=== PATIENT | female | born 1985 | race Caucasian/White ===

== ENCOUNTER 2016-12-16 14:30 | Emergency (ER) | payer MEDICAID ==
[~2016-12-16] VITALS: Ht 182.9 cm; Wt 72.6 kg
[2016-12-16 15:24] LABS: APPEARANCE,URINE CLEAR; KETONES,URINE NEGATIVE (NEGATIVE); LEUKOCYTE ESTERASE ,URINE 1+ (NEGATIVE); NITRITE,URINE NEGATIVE (NEGATIVE); PH,URINE 6.5 (4.5-8.0); PROTEIN,URINE NEGATIVE (NEGATIVE); UROBILINOGEN,URINE NORMAL MG/DL (0.0-1.0)
[2016-12-16 15:31] LABS: BACTERIA,URINE FEW /HPF; SQUAMOUS EPITHELIAL CELL,UR MODERATE /LPF (NONE/OCC); WBC,URINE 0-2 /HPF (0 - 2)
[2016-12-16] MEDS ORDERED: CYCLOBENZAPRINE10 MG ORAL (16:03)
[2016-12-16] MEDS ORDERED: IBUPROFEN600 MG ORAL (16:03)
--- NOTE | 2016-12-16 16:03 | Emergency Room Report ---
History of Present Illness General Chief Complaint: Female Urogenital Problems Source: Patient Present Illness HPI 31-year-old female presents to emergency Department complaining of pelvic area discomfort, and right-sided low back pain that on occasion is radiating down into the right leg. Patient states she was seen at urgent care and diagnosed with UTI and has been taking Bactrim x3 days patient states that she does not believe her symptoms are getting any better. Patient denies dysuria, frequency or hematuria. Patient denies recent fall or trauma. Patient also states that she is currently having nasal congestion and rhinorrhea and intermittent cough she is up-to-date with vaccinations denies recent travel or ill contacts. Patient is worried that all of her symptoms are because she was not correctly diagnosed. Patient denies vaginal discharge states she just recently was tested for chlamydia and gonorrhea for which she did not have. Patient states that she was diagnosed over a year ago at [facility] after having 4 irregular periods. Patient denies nausea, vomiting, abdominal tenderness or pain. Patient describes her pelvic discomfort as heaviness. States right-sided low back pain is her main symptom. denies hx of neoplastic diseases. denies recent spinal procedures. Denies numbness tingling or loss of sensation or gross motor movements of the extremities, incontinence of bowel or bladder. Denies CP, Palpitations, LOC, AMS, dizziness, Changes in Vision, Sensation, paresthesias, or a sudden severe headache. Allergies: Coded Allergies: No Known Allergies (Unverified , 12/16/16) Patient History Past Medical History: see triage record Past Surgical History: none Pertinent Family History: none Last Menstrual Period: 11/20/16 Now: No Immunizations: UTD Reviewed Nursing Documentation: PMH: Agreed, PSxH: Agreed Nursing Documentation-PMH Past Medical History: No History, Except For Review of Systems All Other Systems: negative except mentioned in HPI Physical Exam Vital Signs Date Time Temp Pulse Resp B/P Pulse Ox O2 Delivery O2 Flow Rate FiO2 12/16/16 14:48 98.2 74 16 105/66 99 Room Air Sp02 EP Interpretation: reviewed, normal General Appearance: no apparent distress, alert, GCS 15, non-toxic Head: normocephalic, atraumatic Eyes: bilateral eye PERRL, bilateral eye normal inspection ENT: hearing grossly normal, normal pharynx, no angioedema, normal voice, TMs + canals normal, uvula midline, nasal congestion, pharyngeal erythema Neck: full range of motion, no meningismus, no bony tend, supple/symm/no masses Respiratory: chest non-tender, lungs clear, normal breath sounds, speaking full sentences Cardiovascular #1: regular rate, rhythm, no edema Gastrointestinal: normal bowel sounds, non tender, soft, no guarding, no rebound Rectal: deferred Genitourinary: normal inspection, no CVA tenderness Musculoskeletal: back normal, gait/station normal, normal range of motion, no calf tenderness, tender - right lumbar paraspinal TTP, no midline bony tenderness, no obvious deformity, no erythema, pt. has FROM Neurologic: alert, oriented x3, responsive, motor strength/tone normal, sensory intact, cerebellar normal, normal gait, speech normal, other - negative hoffmans Psychiatric: judgement/insight normal, memory normal, mood/affect normal, no suicidal/homicidal ideation Skin: normal color, no rash, warm/dry, well hydrated Lymphatic: no adenopathy Medical Decision Making PA Attestation Dr. Cantrell is my supervising Physician whom patient management has been discussed with. Diagnostic Impression: Primary Impression: Upper respiratory infection, acute Additional Impressions: History of PCOS Bilateral sciatica ER Course 31-year-old female presents to emergency Department complaining of pelvic area discomfort, and right-sided low back pain that on occasion is radiating down into the legs. Patient states she was seen at urgent care and diagnosed with UTI and has been taking Bactrim x3 days patient states that she does not believe her symptoms are getting any better. Patient denies dysuria, frequency or hematuria. Patient denies recent fall or trauma. Patient also states that she is currently having nasal congestion and rhinorrhea and intermittent cough she is up-to-date with vaccinations denies recent travel or ill contacts. Patient is worried that all of her symptoms are because she was not correctly diagnosed. Patient denies vaginal discharge states she just recently was tested for chlamydia and gonorrhea for which she did not have. Patient states that she was diagnosed over a year ago at [facility] after having 4 irregular periods. Patient denies nausea, vomiting, abdominal tenderness or pain. Patient describes her pelvic discomfort as heaviness. States right-sided low back pain is her main symptom. Ddx considered but are not limited to UTi , Pyelo, STI, Stone, Cystitis, muscle strain/spasm, URI, Vital signs: are WNL, pt. is afebrile H&PE are most consistent with URI, right sided back pain with sciatica, and hx of PCOS, will r/o pyelo or resistant UTI. x-ray imaging not required at this time no midline bony TTP, no saddle anesthesia or incontinence. ORDERS: - UA labs are attached: no WBC's few bacteria, few squamous, no rbc's most likely contamination, no evidence of acute UTI. ED INTERVENTIONS: None required at this time. d/w with PT. follow up instructions, and that I believe her UTI has resolved, no suspicious for pyelo, d/w pt. to follow up with OBGYN for PCOS, and discussed conservative management of her back pain and sciatica. -Pt. declines medications for URI. DISCHARGE: At this time pt. is stable for d/c to home. Will provide printed patient care instructions, and any necessary prescriptions. Care plan and follow up instructions have been discussed with the patient prior to discharge. Labs Test 12/16/16 15:00 Urine Color Pale yellow Urine Appearance Clear Urine pH 6.5 (4.5-8.0) Urine Specific [place] 1.005 (1.005-1.035) Urine Protein Negative (NEGATIVE) Urine Glucose (UA) Negative (NEGATIVE) Urine Ketones Negative (NEGATIVE) Urine Occult Blood 1+ (NEGATIVE) Urine Nitrite Negative (NEGATIVE) Urine Bilirubin Negative (NEGATIVE) Urine Urobilinogen Normal MG/DL (0.0-1.0) Urine Leukocyte Esterase 1+ (NEGATIVE) Urine RBC 2-4 /HPF (0 - 2) Urine WBC 0-2 /HPF (0 - 2) Urine Squamous Epithelial Cells Moderate /LPF (NONE/OCC) Urine Bacteria Few /HPF (NONE) Urine HCG, Qualitative Negative Last Vital Signs Date Time Temp Pulse Resp B/P Pulse Ox O2 Delivery O2 Flow Rate FiO2 12/16/16 14:48 98.2 74 16 105/66 99 Room Air Disposition: HOME, SELF-CARE Condition: Stable Scripts Ibuprofen* (MOTRIN*) 600 Mg Tablet 600 MG ORAL THREE TIMES A DAY, #30 TAB 0 Refills Prov: Clau Weaver P.A. 12/16/16 Cyclobenzaprine Hcl* (FLEXERIL*) 10 Mg Tablet 10 MG ORAL THREE TIMES A DAY for 7 Days, #21 TAB Prov: Clau Weaver 12/16/16 Patient Instructions: Polycystic Ovarian Syndrome, Sciatica, Upper Respiratory Infection, Adult, [id number] Additional Instructions: Take medications as directed. Follow up with PCP or OBGYN in 3-5 days. -- Follow up is very important. If your symptoms do not resolve with conservative treatment, MRI of the lumbar spine and additional pelvic US imaging is warranted. Return sooner to ED if new symptoms occur, or current symptoms become worse. Do not drink alcohol, drive, or operate heavy machinery while taking muscle relaxer as this may cause drowsiness. - Please note that this Emergency Department Report was dictated using [employer] application technology software, occasionally this can lead to erroneous entry secondary to interpretation by the dictation equipment. Clau Weaver Dec 16, 2016 16:03
[2016-12-16 16:10] VITALS: BP 137/81
== END 2016-12-16 16:15 | disposition home or self-care (01) ==
LOC: EMR 16:14
DX: M54.32 Sciatica, left side (principal); M54.31 Sciatica, right side; J06.9 Acute upper respiratory infection, unspecified; E28.2 Polycystic ovarian syndrome
CPT/HCPCS: 81003; 81025; 99284